=== PATIENT | female | born 1995 | race African-American/Black ===

== ENCOUNTER → 2018-10-12 | Outpatient (CLI) | payer OTHER ==
--- NOTE | 2018-10-12 16:33 | KCIC ---
Examination: Ultrasound pelvis HISTORY: History of pelvic pain COMPARISON: None available FINDINGS: The uterus measures 6.9 x 4.7 x 3.5 cm. Endometrium measures 1.3 cm in thickness. The right ovary measures 2.5 x 1.8 x 2.0 cm. The left ovary measures 2.5 x 1.6 x 1.5 cm, Blood flow identified in the right and left ovaries. Follicles identified in the bilateral ovaries. Trace amount of simple free fluid identified in the pelvis. IMPRESSION: 1. Mild prominent appearing endometrium probably due to phase of menstrual cycle. Otherwise unremarkable exam Electronically signed by: Matias Rod MD (10/12/2018 4:30 PM) [place] [id number]
== END | disposition home or self-care (01) ==
LOC: KCIC US 12:17
PROVIDERS: ATTEND Obstetrics & Gynecology
DX: R10.2 Pelvic and perineal pain (principal)
CPT/HCPCS: 76830; 76856